=== PATIENT | male | born 1980 | race Two or more races ===

== ENCOUNTER 2017-05-11 17:31 | Emergency (ER) | payer BC ==
[~2017-05-11] VITALS: Ht 180.3 cm; Wt 99.8 kg
[2017-05-11] MEDS ORDERED: ASPI81TA93 PO (17:53)
[2017-05-11] MEDS ORDERED: ATOR10TA33 PO (17:53)
[2017-05-11 18:37] LABS: BASOPHILS % (AUTO) 0.5 % (0.0-2.0); EOSINOPHILS # (AUTO) 0.2 K/uL (0.0-0.7); EOSINOPHILS % (AUTO) 1.6 % (0.0-7.0); HEMATOCRIT 44.7 % (40-50); HEMOGLOBIN 15.2 G/DL (14.0-18.0); LYMPHOCYTES # (AUTO) 1.9 K/UL (0.8-4.8); LYMPHOCYTES % (AUTO) 20.1 % (20.5-51.5); MEAN CORPUSCULAR HGB CONC 34 g/dL (32.0-37.0); MEAN CORPUSCULAR VOLUME 85.4 FL (82.0-92.0); MONOCYTES # (AUTO) 0.8 K/UL (0.1-1.30); MONOCYTES % (AUTO) 8.7 % (0.0-11.0); NEUTROPHILS # (AUTO) 6.5 K/UL (1.8-8.9); NEUTROPHILS % (AUTO) 69.1 % (38.5-71.5); PLATELET COUNT (AUTO) 239 K/UL (150-450); RED BLOOD CELL COUNT(AUTO) 5.23 MIL/UL (4.7-6.1); WHITE BLOOD COUNT (AUTO) 9.4 K/UL (4.0-11.2)
[2017-05-11 18:41] LABS: CREATININE 0.9 mg/dL (0.6-1.3); POTASSIUM 4.1 mmol/L (3.5-5.1)
[2017-05-11 18:47] LABS: BILIRUBIN,DIRECT 0.1 mg/dL (0.0-0.2); BILIRUBIN,TOTAL 0.7 mg/dL (0.2-1.0); TOTAL PROTEIN, SERUM 7.7 g/dL (6.4-8.2)
--- NOTE | 2017-05-11 19:17 | NUR ---
DR CISNEROS INTO EVAL PATIENT
[2017-05-11] MEDS ORDERED: MORPHINE SULFATE 4 MG/1 ML DISP.SYRIN IV ONE (19:30)
[2017-05-11] MEDS ORDERED: ONDANSETRON 4 MG/2 ML VIAL IV ONE (19:30)
[2017-05-11] MEDS ORDERED: ONDANSETRON 4 MG/2 ML VIAL ONE (19:47)
[2017-05-11] MEDS ORDERED: MORPHINE SULFATE 4 MG/1 ML DISP.SYRIN ONE (19:47)
[2017-05-11] MEDS ORDERED: NORMAL SALINE FLUSH 10 ML DISP.SYRIN ONE (20:05)
[2017-05-11] MEDS ORDERED: IV NORMAL SALINE 250 ML IV ONE (20:05)
[2017-05-11] MEDS ORDERED: IOHEXOL 350 100 ML INFUS..BTL ONE (20:05)
--- NOTE | 2017-05-11 20:06 | NUR ---
PATIENT OUT OF UNIT FOR CT SCAN VIA GURNY
--- NOTE | 2017-05-11 20:20 | NUR ---
PATIENT BROUGHT BACK FROM CT SCAN VIA GURTERESE C/O ITCHY. PATIENT WITH NO RASH,DENIES SOB,CP. DR CISNEROS INTO EVAL PATIENT.
[2017-05-11] MEDS ORDERED: diphenhydrAMINE 50 MG/1 ML VIAL IV ONE (20:30)
[2017-05-11] MEDS ORDERED: methylPREDNISolone SOD SUCC 125 MG/2 ML VIAL IV ONE (20:30)
[2017-05-11] MEDS ORDERED: methylPREDNISolone SOD SUCC 125 MG/2 ML VIAL ONE (20:40)
[2017-05-11] MEDS ORDERED: diphenhydrAMINE 50 MG/1 ML VIAL ONE (20:40)
--- NOTE | 2017-05-11 22:50 | NUR ---
IV removed. Catheter intact and site benign. Pressure and 4x4 gauze applied to site. No bleeding noted.
--- NOTE | 2017-05-11 22:58 | NUR ---
Patient discharged to home in stable conditon WITH FAMILY TAKING PATIENT HOME. Written and verbal after care instructions given. Patient verbalizes understanding of instructions. WALKED OUT OF ER WITH STEADY GAIT
[2017-05-11 22:59] VITALS: BP 125/78
== END 2017-05-11 23:00 | disposition home or self-care (01) ==
LOC: ER 17:37
DX: R07.9 Chest pain, unspecified (principal); E78.5 Hyperlipidemia, unspecified
CPT/HCPCS: 36415; 71010; 71275; 80048; 80076; 84484 ×2; 85025; 85730; 93005 ×2; 93970; 96374; 96375; 99285; J1200; J2270; J2405; J2930; J3490; J7050; Q9967; 70030-TC